=== PATIENT | female | born 1935 | race Two or more races ===

== ENCOUNTER 2021-01-15 15:11 | Inpatient (IN) | payer OTHER ==
[2021-01-15] VITALS (31 sets, daily range): BP systolic 82–142; BP diastolic 22–65
[~2021-01-15] VITALS: Ht 170.2 cm; Wt 90.4 kg
[2021-01-15] MEDS ORDERED: NOREPINEPHRINE 8 MG/250ML KIT 250 ML IV ONE (15:18)
[2021-01-15] MEDS ORDERED: NOREPINEPHRINE 8 MG/250ML KIT 250 ML IV SCH (15:30)
[2021-01-15] MEDS ORDERED: IODIXANOL 320MG/ML 100ML BTL IV ONE (15:37)
[2021-01-15] MEDS ORDERED: LIDOCAINE 2%HCL (LOCAL ANESTH.) INJ 20ML MDV ONE (15:37)
[2021-01-15 15:57] LABS: Basophils # (auto) 0.1 10 ^3/uL (0-0.2); Basophils % (auto) 0.4 % (0.0-2.0); Eosinophils # (auto) 0.2 10 ^3/uL (0-0.8); Eosinophils % (auto) 1.4 % (0.0-7.0); Hematocrit 32.8 % (36.0-46.0); Hemoglobin 10.4 g/dL (12.2-16.2); Lymphocytes # (auto) 6.4 10 ^3/uL (0.4-5.4); Lymphocytes % (auto) 45.9 % (10.0-50.0); Mean Corpuscular Hemoglobin 28.1 pg (28.0-32.0); Mean Corpuscular Hgb Conc. 31.7 g/dL (32.0-36.0); Mean Corpuscular Volume 88.4 fL (80.0-100.0); Monocytes # (auto) 0.5 10 ^3/uL (0-1.3); Monocytes % (auto) 3.8 % (0.0-12.0); Neutrophils # (auto) 6.8 10 ^3/uL (1.6-8.6); Neutrophils % (auto) 48.5 % (37.0-80.0); Nucleated Red Blood Cells % 0.1 %; Red Blood Cells 3.71 10^6/uL (4.0-5.20); Red Cell Distribution Width 15.1 % (11.8-14.3)
[2021-01-15] MEDS ORDERED: HEPARIN SODIUM (PORCINE) 5000 UNITS/ML 1ML VIAL ONE (16:02)
[2021-01-15] MEDS ORDERED: VERAPAMIL 2.5MG/ML INJ 2ML VIAL IV ONE (16:03)
[2021-01-15] MEDS ORDERED: ATROPINE SULF 1 MG/10ml SYR ONE (16:17)
[2021-01-15] MEDS ORDERED: EPINEPHrine HCL 1 MG/10 ML SYRG ONE (16:17)
[2021-01-15 16:26] LABS: Albumin 2.5 g/dL (3.4-5.0); Calcium 7.9 mg/dL (8.5-10.1); Magnesium 2.5 mg/dL (1.6-2.6); Potassium 4.9 mmol/L (3.5-5.1)
[2021-01-15] MEDS ORDERED: MIDAZOLAM HCL 2MG/2ML 2ml VIAL (1mg/ml) ONE (16:27)
[2021-01-15 16:32] LABS: BUN/Creatinine Ratio 19.9; Bilirubin, Total 0.3 mg/dL (0.2-1.0); Total Protein 6.6 g/dL (6.4-8.2)
[2021-01-15] MEDS ORDERED: IPRATROPIUM BROM 0.5 MG/2.5ML INH SOL NEB PRN (17:00)
[2021-01-15] MEDS ORDERED: DEXTROSE (50%) 50ML SYRG IV PRN (17:00)
[2021-01-15] MEDS ORDERED: SODIUM CHLORIDE 0.9% 1,000 ML IV SCH (17:00)
[2021-01-15] MEDS ORDERED: ALBUTEROL SULF 2.5 MG/0.5ML(0.5%) NEB SOLN NEB PRN (17:00)
[2021-01-15] MEDS ORDERED: NITROGLYCERIN 0.4 MG SL TAB SL PRN (17:00)
[2021-01-15] MEDS ORDERED: MORPHINE SULFATE INJECTION 2 MG/2 ML SYRG IV PRN (17:00)
[2021-01-15] MEDS ORDERED: FUROSEMIDE 20 MG/2 ML VIAL IV ONE (17:00)
[2021-01-15] MEDS ORDERED: MIDAZOLAM DRIP 50 mg/50mL 50 ML IV ONE (17:02)
[2021-01-15] MEDS ORDERED: BUMETANIDE 2.5mg/10ml (0.25 mg/ml) INJ IV ONE (17:15)
[2021-01-15] MEDS: cefTRIAXone 1GM/50ML D5W 50 ML IV SCH (17:47)
[2021-01-15 17:52] LABS: INR 1.13 (0.9-1.15); Partial Thromboplastin Time 28.8 sec (23.0-31.2)
[2021-01-15] MEDS: InsuLIN REG 1unit/0.01ml Soln (100units/ml) SC SCH (17:58)
[2021-01-15] MEDS: ACCU-CHEK COMFORT CURVE STRIP VI SCH (18:00)
[2021-01-15] MEDS: MIDAZOLAM DRIP 50 mg/50mL 50 ML IV SCH ×2 (19:15→22:28)
[2021-01-15] MEDS: NOREPINEPHRINE 8 MG/250ML KIT 250 ML IV SCH (19:17)
[2021-01-15] MEDS ORDERED: SODIUM BICARBONATE 8.4 % INJ 50ML VIAL IV ONE (19:45)
[2021-01-15] MEDS: AZITHROMYCIN 500MG/ 250ML 250 ML IV SCH (20:51)
[2021-01-16] VITALS (99 sets, daily range): BP systolic 78–167; BP diastolic 27–80
[2021-01-16] MEDS: ACCU-CHEK COMFORT CURVE STRIP VI SCH ×4 (00:22→18:04)
[2021-01-16] MEDS: MIDAZOLAM DRIP 50 mg/50mL 50 ML IV SCH ×3 (02:00→23:00)
[2021-01-16 04:39] LABS: Basophils # (auto) 0 10 ^3/uL (0-0.2); Basophils % (auto) 0.1 % (0.0-2.0); Eosinophils # (auto) 0 10 ^3/uL (0-0.8); Hematocrit 30.7 % (36.0-46.0); Hemoglobin 10.1 g/dL (12.2-16.2); Lymphocytes # (auto) 0.8 10 ^3/uL (0.4-5.4); Lymphocytes % (auto) 4.8 % (10.0-50.0); Mean Corpuscular Hemoglobin 28.4 pg (28.0-32.0); Mean Corpuscular Hgb Conc. 32.8 g/dL (32.0-36.0); Mean Corpuscular Volume 86.6 fL (80.0-100.0); Monocytes # (auto) 0.9 10 ^3/uL (0-1.3); Monocytes % (auto) 5.6 % (0.0-12.0); Neutrophils # (auto) 14.7 10 ^3/uL (1.6-8.6); Neutrophils % (auto) 89.5 % (37.0-80.0); Red Blood Cells 3.54 10^6/uL (4.0-5.20); Red Cell Distribution Width 14.9 % (11.8-14.3); White Blood Cell 16.5 10^3/uL (4.4-10.8)
[2021-01-16 04:56] LABS: Potassium 5.2 mmol/L (3.5-5.1)
[2021-01-16 05:05] LABS: Albumin 2.3 g/dL (3.4-5.0); BUN/Creatinine Ratio 16.4; Bilirubin, Total 0.5 mg/dL (0.2-1.0); Calcium 7.9 mg/dL (8.5-10.1); Total Protein 6.3 g/dL (6.4-8.2)
[2021-01-16 05:09] LABS: INR 1.16 (0.9-1.15); Partial Thromboplastin Time 27.1 sec (23.0-31.2)
[2021-01-16] MEDS: InsuLIN REG 1unit/0.01ml Soln (100units/ml) SC SCH ×4 (06:08→18:27)
[2021-01-16] MEDS: cefTRIAXone 1GM/50ML D5W 50 ML IV SCH (09:45)
[2021-01-16] MEDS ORDERED: SODIUM BICARBONATE 8.4 % INJ 50ML VIAL IV ONE (09:45)
[2021-01-16] MEDS: PANTOPRAZOLE 40 MG/10 ML VIAL INJ IV SCH (10:05)
[2021-01-16] MEDS: AZITHROMYCIN 500MG/ 250ML 250 ML IV SCH (10:06)
[2021-01-16] MEDS ORDERED: ATROPINE SULF 1 MG/10ml SYR IV ONE (13:47)
[2021-01-16] MEDS ORDERED: EPINEPHrine HCL 1 MG/10 ML SYRG IV ONE (13:47)
[2021-01-16] MEDS ORDERED: MAGNESIUM SULF 50% 40 MEQ/10 ML VL IV ONE (13:47)
[2021-01-16] MEDS ORDERED: SODIUM BICARBONATE 8.4% INJ 50ML SYRINGE IV ONE (13:47)
[2021-01-16] MEDS ORDERED: DOPamine 1600MCG/ML D5W 250 ML IV SCH (14:30)
[2021-01-16] MEDS ORDERED: D5W/SOD CHL 0.45% 1,000 ML IV SCH (14:30)
[2021-01-16] MEDS ORDERED: DOPamine 1600MCG/ML D5W 250 ML IV ONE (14:35)
[2021-01-16] MEDS: SODIUM BICARBONATE 50ML VIAL 50 ML in D5W/SOD CHL 0.45% 1,000 ML IV SCH (16:36)
[2021-01-16] MEDS: DOPamine 1600MCG/ML D5W 250 ML IV SCH (16:37)
[2021-01-16] MEDS: NOREPINEPHRINE 8 MG/250ML KIT 250 ML IV SCH (17:00)
[2021-01-16] MEDS: HEPARIN SODIUM (PORCINE) 5000 UNITS/ML 1ML VIAL SC SCH (21:39)
[2021-01-16] MEDS: MEROPENEM 500MG IVPB 50 ML IV SCH (21:39)
[2021-01-17] VITALS (92 sets, daily range): BP systolic 91–167; BP diastolic 37–87
[2021-01-17] MEDS: ACCU-CHEK COMFORT CURVE STRIP VI SCH ×5 (00:14→23:55)
[2021-01-17] MEDS: InsuLIN REG 1unit/0.01ml Soln (100units/ml) SC SCH ×5 (00:15→23:55)
[2021-01-17] MEDS: SODIUM BICARBONATE 50ML VIAL 50 ML in D5W/SOD CHL 0.45% 1,000 ML IV SCH ×2 (00:40→10:15)
[2021-01-17 04:50] LABS: Calcium 7.6 mg/dL (8.5-10.1); Potassium 5.2 mmol/L (3.5-5.1); Uric Acid 9.8 mg/dL (2.6-6.0)
[2021-01-17 04:53] LABS: BUN/Creatinine Ratio 14.1; Bilirubin, Total 0.4 mg/dL (0.2-1.0); Phosphorus 4.6 mg/dL (2.5-4.90); Total Protein 5.9 g/dL (6.4-8.2)
[2021-01-17] MEDS: MIDAZOLAM DRIP 50 mg/50mL 50 ML IV SCH ×5 (06:00→22:48)
[2021-01-17 06:06] LABS: Urine Bacteria NONE SEEN /hpf (None Seen); Urine Blood 3+ /uL (Negative); Urine WBC 272 /hpf (0 - 5); Urine WBC Clumps PRESENT /hpf (None Seen)
[2021-01-17] MEDS: HEPARIN SODIUM (PORCINE) 5000 UNITS/ML 1ML VIAL SC SCH ×3 (06:07→21:48)
[2021-01-17 06:19] LABS: Amphetamine Screen, Urine NEGATIVE (NEGATIVE); Barbiturate Scree,Urine NEGATIVE (NEGATIVE); Benzodiazephine Screen, Urine POSITIVE (NEGATIVE); Cannabinoid Screen, Urine NEGATIVE (NEGATIVE); Cocaine Screen, Urine NEGATIVE (NEGATIVE); Opiate Scree,Urine NEGATIVE (NEGATIVE); Phencyclidine Screen, Urine NEGATIVE (NEGATIVE)
[2021-01-17 07:47] LABS: Basophils # (auto) 0 10 ^3/uL (0-0.2); Basophils % (auto) 0.1 % (0.0-2.0); Eosinophils # (auto) 0 10 ^3/uL (0-0.8); Hemoglobin 8.8 g/dL (12.2-16.2); Lymphocytes # (auto) 0.8 10 ^3/uL (0.4-5.4); Lymphocytes % (auto) 6.6 % (10.0-50.0); Mean Corpuscular Hemoglobin 28.9 pg (28.0-32.0); Mean Corpuscular Hgb Conc. 33.7 g/dL (32.0-36.0); Mean Corpuscular Volume 85.7 fL (80.0-100.0); Monocytes # (auto) 0.6 10 ^3/uL (0-1.3); Monocytes % (auto) 4.6 % (0.0-12.0); Neutrophils # (auto) 11.5 10 ^3/uL (1.6-8.6); Neutrophils % (auto) 88.7 % (37.0-80.0); Red Blood Cells 3.03 10^6/uL (4.0-5.20); Red Cell Distribution Width 15.5 % (11.8-14.3)
[2021-01-17 08:57] LABS: Creatinine, Urine 34.9 mg/dL (30.0-125.0); Protein, Urine 773.9 mg/dL (0.0-11.9)
[2021-01-17] MEDS: MEROPENEM 500MG IVPB 50 ML IV SCH ×2 (10:30→21:47)
[2021-01-17] MEDS: PANTOPRAZOLE 40 MG/10 ML VIAL INJ IV SCH (10:30)
[2021-01-17] MEDS ORDERED: acetaZOLAMIDE SODIUM 500 MG VL IV ONE (10:45)
[2021-01-17] MEDS: SOD CHL 0.45% 1,000 ML IV SCH ×2 (11:26→21:47)
[2021-01-17] MEDS: BUMETANIDE INJECTION 12.5 MG in GIVE UN-DILUTED 0 ML IV SCH ×2 (12:02→22:00)
[2021-01-17] MEDS: AZITHROMYCIN 500MG/ 250ML 250 ML IV SCH (13:33)
[2021-01-17] MEDS: NOREPINEPHRINE 8 MG/250ML KIT 250 ML IV SCH (19:08)
[2021-01-17] MEDS: DOPamine 1600MCG/ML D5W 250 ML IV SCH (21:46)
[2021-01-18] VITALS (98 sets, daily range): BP systolic 92–147; BP diastolic 36–64
[2021-01-18] MEDS: MIDAZOLAM DRIP 50 mg/50mL 50 ML IV SCH ×4 (02:00→23:26)
[2021-01-18 04:28] LABS: Calcium 7.2 mg/dL (8.5-10.1); Potassium 5.1 mmol/L (3.5-5.1)
[2021-01-18 04:31] LABS: Bilirubin, Total 0.4 mg/dL (0.2-1.0); Total Protein 5.8 g/dL (6.4-8.2)
[2021-01-18] MEDS: InsuLIN REG 1unit/0.01ml Soln (100units/ml) SC SCH ×4 (06:00→23:48)
[2021-01-18] MEDS: ACCU-CHEK COMFORT CURVE STRIP VI SCH ×4 (06:08→23:48)
[2021-01-18] MEDS: HEPARIN SODIUM (PORCINE) 5000 UNITS/ML 1ML VIAL SC SCH ×3 (06:09→21:58)
[2021-01-18] MEDS: SOD CHL 0.45% 1,000 ML IV SCH (06:23)
[2021-01-18 07:46] LABS: Basophils # (auto) 0 10 ^3/uL (0-0.2); Basophils % (auto) 0.3 % (0.0-2.0); Eosinophils # (auto) 0 10 ^3/uL (0-0.8); Eosinophils % (auto) 0.2 % (0.0-7.0); Hematocrit 25.8 % (36.0-46.0); Hemoglobin 8.5 g/dL (12.2-16.2); Lymphocytes # (auto) 0.9 10 ^3/uL (0.4-5.4); Lymphocytes % (auto) 7.2 % (10.0-50.0); Mean Corpuscular Hemoglobin 28.9 pg (28.0-32.0); Mean Corpuscular Hgb Conc. 33.2 g/dL (32.0-36.0); Mean Corpuscular Volume 87.1 fL (80.0-100.0); Monocytes # (auto) 0.6 10 ^3/uL (0-1.3); Neutrophils # (auto) 10.3 10 ^3/uL (1.6-8.6); Neutrophils % (auto) 87.3 % (37.0-80.0); Nucleated Red Blood Cells % 0.1 %; Red Blood Cells 2.96 10^6/uL (4.0-5.20); Red Cell Distribution Width 15.2 % (11.8-14.3); White Blood Cell 11.8 10^3/uL (4.4-10.8)
[2021-01-18] MEDS: PANTOPRAZOLE 40 MG/10 ML VIAL INJ IV SCH (10:29)
[2021-01-18] MEDS: MEROPENEM 500MG IVPB 50 ML IV SCH ×2 (10:30→21:57)
[2021-01-18] MEDS: BUMETANIDE INJECTION 25 MG in GIVE UN-DILUTED 0 ML IV SCH (12:36)
[2021-01-18] MEDS: AZITHROMYCIN 500MG/ 250ML 250 ML IV SCH (12:37)
[2021-01-18] MEDS: ALBUMIN 25% 100 ML IV SCH ×2 (15:56→20:53)
[2021-01-18] MEDS: DOPamine 1600MCG/ML D5W 250 ML IV SCH (16:15)
[2021-01-18] MEDS: NOREPINEPHRINE 8 MG/250ML KIT 250 ML IV SCH (17:38)
[2021-01-19] VITALS (95 sets, daily range): BP systolic 82–153; BP diastolic 31–64
[2021-01-19] MEDS: ALBUMIN 25% 100 ML IV SCH (03:18)
[2021-01-19] MEDS: MIDAZOLAM DRIP 50 mg/50mL 50 ML IV SCH ×3 (03:19→17:36)
[2021-01-19 04:49] LABS: Potassium 4.7 mmol/L (3.5-5.1)
[2021-01-19 04:58] LABS: Albumin 2.3 g/dL (3.4-5.0); BUN/Creatinine Ratio 12.1; Bilirubin, Total 0.4 mg/dL (0.2-1.0); Calcium 6.7 mg/dL (8.5-10.1); Total Protein 5.7 g/dL (6.4-8.2)
[2021-01-19] MEDS: ACCU-CHEK COMFORT CURVE STRIP VI SCH ×3 (06:00→17:35)
[2021-01-19] MEDS: InsuLIN REG 1unit/0.01ml Soln (100units/ml) SC SCH ×3 (06:00→17:35)
[2021-01-19] MEDS: HEPARIN SODIUM (PORCINE) 5000 UNITS/ML 1ML VIAL SC SCH ×3 (06:44→22:00)
[2021-01-19] MEDS: BUMETANIDE INJECTION 25 MG in GIVE UN-DILUTED 0 ML IV SCH (07:10)
[2021-01-19] MEDS: DOPamine 1600MCG/ML D5W 250 ML IV SCH (07:57)
[2021-01-19 08:06] LABS: Immunoglobulin G, Serum 898 mg/dL (586-1602)
[2021-01-19] MEDS: PANTOPRAZOLE 40 MG/10 ML VIAL INJ IV SCH (09:54)
[2021-01-19] MEDS: MEROPENEM 500MG IVPB 50 ML IV SCH (10:06)
[2021-01-19] MEDS: AZITHROMYCIN 500MG/ 250ML 250 ML IV SCH ×2 (12:48→13:04)
[2021-01-19] MEDS: NOREPINEPHRINE 8 MG/250ML KIT 250 ML IV SCH (17:00)
[2021-01-20] VITALS (101 sets, daily range): BP systolic 96–161; BP diastolic 33–65
[2021-01-20] MEDS: ACCU-CHEK COMFORT CURVE STRIP VI SCH ×5 (00:27→23:52)
[2021-01-20] MEDS: InsuLIN REG 1unit/0.01ml Soln (100units/ml) SC SCH ×5 (05:41→23:52)
[2021-01-20] MEDS: HEPARIN SODIUM (PORCINE) 5000 UNITS/ML 1ML VIAL SC SCH ×3 (06:32→22:53)
[2021-01-20] MEDS: PANTOPRAZOLE 40 MG/10 ML VIAL INJ IV SCH (09:59)
[2021-01-20] MEDS: MEROPENEM 500MG IVPB 50 ML IV SCH (10:00)
[2021-01-20] MEDS: BUMETANIDE INJECTION 25 MG in GIVE UN-DILUTED 0 ML IV SCH (10:00)
[2021-01-20 10:54] LABS: Basophils # (auto) 0 10 ^3/uL (0-0.2); Eosinophils # (auto) 0.2 10 ^3/uL (0-0.8); Lymphocytes # (auto) 0.8 10 ^3/uL (0.4-5.4); Mean Corpuscular Volume 84.9 fL (80.0-100.0); Monocytes # (auto) 0.6 10 ^3/uL (0-1.3); Monocytes % (auto) 8.5 % (0.0-12.0); Neutrophils # (auto) 5.1 10 ^3/uL (1.6-8.6); Nucleated Red Blood Cells % 0.1 %
[2021-01-20 10:57] LABS: Basophils % (auto) 0.3 % (0.0-2.0); Eosinophils % (auto) 2.5 % (0.0-7.0); Hematocrit 22.6 % (36.0-46.0); Hemoglobin 7.8 g/dL (12.2-16.2); Lymphocytes % (auto) 11.7 % (10.0-50.0); Mean Corpuscular Hemoglobin 29.4 pg (28.0-32.0); Mean Corpuscular Hgb Conc. 34.7 g/dL (32.0-36.0); Red Blood Cells 2.66 10^6/uL (4.0-5.20); White Blood Cell 6.6 10^3/uL (4.4-10.8)
[2021-01-20 11:11] LABS: Albumin 2.2 g/dL (3.4-5.0); Calcium 7.2 mg/dL (8.5-10.1); Potassium 4.4 mmol/L (3.5-5.1)
[2021-01-20 11:15] LABS: BUN/Creatinine Ratio 11.6; Bilirubin, Total 0.4 mg/dL (0.2-1.0); Total Protein 5.8 g/dL (6.4-8.2)
[2021-01-20] MEDS: DOPamine 1600MCG/ML D5W 250 ML IV SCH (14:26)
[2021-01-20] MEDS: NOREPINEPHRINE 8 MG/250ML KIT 250 ML IV SCH (17:00)
[2021-01-21] VITALS (94 sets, daily range): BP systolic 101–177; BP diastolic 31–72
[2021-01-21] MEDS: BUMETANIDE INJECTION 25 MG in GIVE UN-DILUTED 0 ML IV SCH (05:15)
[2021-01-21] MEDS: ACCU-CHEK COMFORT CURVE STRIP VI SCH ×3 (05:45→17:42)
[2021-01-21] MEDS: InsuLIN REG 1unit/0.01ml Soln (100units/ml) SC SCH ×3 (05:45→18:00)
[2021-01-21] MEDS: HEPARIN SODIUM (PORCINE) 5000 UNITS/ML 1ML VIAL SC SCH ×3 (05:47→21:39)
[2021-01-21] MEDS: MEROPENEM 500MG IVPB 50 ML IV SCH (10:13)
[2021-01-21] MEDS: PANTOPRAZOLE 40 MG/10 ML VIAL INJ IV SCH (10:51)
[2021-01-21] MEDS: AZITHROMYCIN 500MG/ 250ML 250 ML IV SCH (12:00)
[2021-01-21] MEDS: NOREPINEPHRINE 8 MG/250ML KIT 250 ML IV SCH (14:39)
[2021-01-21] MEDS: MIDAZOLAM DRIP 50 mg/50mL 50 ML IV SCH (14:39)
[2021-01-21] MEDS: DOPamine 1600MCG/ML D5W 250 ML IV SCH (16:15)
[2021-01-22] VITALS (102 sets, daily range): BP systolic 107–159; BP diastolic 41–70
[2021-01-22] MEDS: ACCU-CHEK COMFORT CURVE STRIP VI SCH ×4 (00:09→17:05)
[2021-01-22] MEDS: DOPamine 1600MCG/ML D5W 250 ML IV SCH (03:13)
[2021-01-22 04:52] LABS: Basophils # (auto) 0 10 ^3/uL (0-0.2); Hemoglobin 8.3 g/dL (12.2-16.2); Lymphocytes # (auto) 0.9 10 ^3/uL (0.4-5.4); Monocytes # (auto) 0.6 10 ^3/uL (0-1.3)
[2021-01-22 04:54] LABS: Basophils % (auto) 0.5 % (0.0-2.0); Eosinophils # (auto) 0.2 10 ^3/uL (0-0.8); Eosinophils % (auto) 2.3 % (0.0-7.0); Hematocrit 24.8 % (36.0-46.0); Lymphocytes % (auto) 12.6 % (10.0-50.0); Mean Corpuscular Hemoglobin 28.3 pg (28.0-32.0); Mean Corpuscular Hgb Conc. 33.4 g/dL (32.0-36.0); Mean Corpuscular Volume 84.7 fL (80.0-100.0); Monocytes % (auto) 8.9 % (0.0-12.0); Neutrophils # (auto) 5.2 10 ^3/uL (1.6-8.6); Neutrophils % (auto) 75.7 % (37.0-80.0); Red Blood Cells 2.92 10^6/uL (4.0-5.20); Red Cell Distribution Width 14.5 % (11.8-14.3); White Blood Cell 6.9 10^3/uL (4.4-10.8)
[2021-01-22 05:12] LABS: BUN/Creatinine Ratio 12.3; Calcium 7.7 mg/dL (8.5-10.1); Potassium 4.3 mmol/L (3.5-5.1)
[2021-01-22] MEDS: InsuLIN REG 1unit/0.01ml Soln (100units/ml) SC SCH ×4 (06:00→17:05)
[2021-01-22] MEDS: HEPARIN SODIUM (PORCINE) 5000 UNITS/ML 1ML VIAL SC SCH ×3 (06:27→21:09)
[2021-01-22] MEDS ORDERED: SODIUM CHLORIDE 0.9% 500 ML IV ONE (07:30)
[2021-01-22] MEDS: BUMETANIDE INJECTION 25 MG in GIVE UN-DILUTED 0 ML IV SCH (07:32)
[2021-01-22] MEDS: PANTOPRAZOLE 40 MG/10 ML VIAL INJ IV SCH (09:06)
[2021-01-22] MEDS: FUROSEMIDE 100 MG/10ML VIAL IV SCH (09:06)
[2021-01-22] MEDS: MEROPENEM 500MG IVPB 50 ML IV SCH (09:25)
[2021-01-22] MEDS: AZITHROMYCIN 500MG/ 250ML 250 ML IV SCH (12:00)
[2021-01-22] MEDS: MIDAZOLAM DRIP 50 mg/50mL 50 ML IV SCH (13:04)
[2021-01-22] MEDS: NOREPINEPHRINE 8 MG/250ML KIT 250 ML IV SCH (14:42)
[2021-01-23] VITALS (100 sets, daily range): BP systolic 92–180; BP diastolic 36–83
[2021-01-23 04:34] LABS: BUN/Creatinine Ratio 12.6; Potassium 4.2 mmol/L (3.5-5.1)
[2021-01-23] MEDS: InsuLIN REG 1unit/0.01ml Soln (100units/ml) SC SCH ×4 (06:00→18:00)
[2021-01-23] MEDS: HEPARIN SODIUM (PORCINE) 5000 UNITS/ML 1ML VIAL SC SCH ×3 (06:20→21:58)
[2021-01-23] MEDS: ACCU-CHEK COMFORT CURVE STRIP VI SCH ×4 (06:20→17:53)
[2021-01-23] MEDS: PANTOPRAZOLE 40 MG/10 ML VIAL INJ IV SCH (09:41)
[2021-01-23] MEDS: MEROPENEM 500MG IVPB 50 ML IV SCH (09:42)
[2021-01-23] MEDS: FUROSEMIDE 100 MG/10ML VIAL IV SCH (09:42)
[2021-01-23] MEDS: DOPamine 1600MCG/ML D5W 250 ML IV SCH (09:43)
[2021-01-23] MEDS: AZITHROMYCIN 500MG/ 250ML 250 ML IV SCH (12:00)
[2021-01-23] MEDS: MIDAZOLAM DRIP 50 mg/50mL 50 ML IV SCH (17:00)
[2021-01-23] MEDS: NOREPINEPHRINE 8 MG/250ML KIT 250 ML IV SCH (17:00)
[2021-01-24] VITALS (92 sets, daily range): BP systolic 86–153; BP diastolic 31–64
[2021-01-24] MEDS: ACCU-CHEK COMFORT CURVE STRIP VI SCH ×4 (00:10→18:10)
[2021-01-24] MEDS: InsuLIN REG 1unit/0.01ml Soln (100units/ml) SC SCH ×4 (06:00→18:00)
[2021-01-24] MEDS: HEPARIN SODIUM (PORCINE) 5000 UNITS/ML 1ML VIAL SC SCH ×3 (06:40→22:25)
[2021-01-24 08:09] LABS: BUN/Creatinine Ratio 13.1
[2021-01-24] MEDS: PANTOPRAZOLE 40 MG/10 ML VIAL INJ IV SCH (09:56)
[2021-01-24] MEDS: FUROSEMIDE 100 MG/10ML VIAL IV SCH (09:57)
[2021-01-24] MEDS: MEROPENEM 500MG IVPB 50 ML IV SCH (09:58)
[2021-01-24] MEDS: AZITHROMYCIN 500MG/ 250ML 250 ML IV SCH (11:51)
[2021-01-24] MEDS: MIDAZOLAM DRIP 50 mg/50mL 50 ML IV SCH (17:00)
[2021-01-24] MEDS: NOREPINEPHRINE 8 MG/250ML KIT 250 ML IV SCH (17:00)
[2021-01-25] VITALS (47 sets, daily range): BP systolic 92–143; BP diastolic 31–68
[2021-01-25] MEDS: InsuLIN REG 1unit/0.01ml Soln (100units/ml) SC SCH
[2021-01-25] MEDS: ACCU-CHEK COMFORT CURVE STRIP VI SCH (00:06)
[2021-01-25] MEDS ORDERED: ONDANSETRON HCL 4 MG/2 ML VIAL IV PRN (08:15)
[2021-01-25] MEDS ORDERED: HYOSCYAMINE SULF 0.125 MG ODT TAB PO PRN (08:15)
[2021-01-25] MEDS: LORazepam 2MG/ML-1ML VIAL IV PRN (11:27)
[2021-01-25] MEDS: MORPHINE SULFATE INJECTION 2 MG/2 ML SYRG IV PRN (11:27)
[2021-01-26 05:43] VITALS: BP 126/44
[2021-01-26 08:55] VITALS: BP 117/40
[2021-01-26 13:00] VITALS: BP 104/37
[2021-01-26 16:36] VITALS: BP 114/39
[2021-01-27 08:46] VITALS: BP 107/55
[2021-01-28 05:00] VITALS: BP 126/49
[2021-01-28 16:38] VITALS: BP 114/38
[2021-01-28 22:00] VITALS: BP 124/83
[2021-01-29] MEDS: LORazepam 2MG/ML-1ML VIAL IV PRN ×3 (18:31→21:53)
[2021-01-29] MEDS: MORPHINE SULFATE INJECTION 2 MG/2 ML SYRG IV PRN ×2 (18:31→21:52)
[2021-01-30] MEDS: MORPHINE SULFATE INJECTION 2 MG/2 ML SYRG IV PRN ×4 (00:31→09:06)
[2021-01-30] MEDS: LORazepam 2MG/ML-1ML VIAL IV PRN ×4 (00:32→09:06)
== END 2021-01-30 18:00 ==
LOC: EDBD 15:11 → ER 15:11 → ICU WEST 16:57 → CENTRAL 01-25 18:00
PROVIDERS: ADMIT Nurse Practitioner Acute Care; ATTEND Internal Medicine
PROC: 5A1955Z Respiratory Ventilation, Greater than 96 Consecutive Hours (ICD-10-PCS; principal; 2021-01-15)
PROC: 0BH17EZ Insertion of Endotracheal Airway into Trachea, Via Natural or Artificial Opening (ICD-10-PCS; 2021-01-15)
PROC: 4A023N7 Measurement of Cardiac Sampling and Pressure, Left Heart, Percutaneous Approach (ICD-10-PCS; 2021-01-15)
PROC: B211YZZ Fluoroscopy of Multiple Coronary Arteries using Other Contrast (ICD-10-PCS; 2021-01-15)
PROC: B215YZZ Fluoroscopy of Left Heart using Other Contrast (ICD-10-PCS; 2021-01-15)
PROC: 5A1223Z Performance of Cardiac Pacing, Continuous (ICD-10-PCS; 2021-01-15)
PROC: 05HD33Z Insertion of Infusion Device into Right Cephalic Vein, Percutaneous Approach (ICD-10-PCS; 2021-01-18)
PROC: B54MZZA Ultrasonography of Right Upper Extremity Veins, Guidance (ICD-10-PCS; 2021-01-18)
DX: I44.2 Atrioventricular block, complete (principal); G93.6 Cerebral edema; I21.3 ST elevation (STEMI) myocardial infarction of unspecified site; I50.21 Acute systolic (congestive) heart failure; K72.00 Acute and subacute hepatic failure without coma; J96.01 Acute respiratory failure with hypoxia; N17.0 Acute kidney failure with tubular necrosis; J96.02 Acute respiratory failure with hypercapnia; G93.41 Metabolic encephalopathy; N13.6 Pyonephrosis; G93.1 Anoxic brain damage, not elsewhere classified; I13.0 Hypertensive heart and chronic kidney disease with heart failure and stage 1 through stage 4 chronic kidney disease, or unspecified chronic kidney disease; Z99.11 Dependence on respirator [ventilator] status; E87.2 Acidosis; Z66 Do not resuscitate; I46.9 Cardiac arrest, cause unspecified; Z51.5 Encounter for palliative care; E87.5 Hyperkalemia; Z20.822 Contact with and (suspected) exposure to COVID-19; E88.09 Other disorders of plasma-protein metabolism, not elsewhere classified; N18.9 Chronic kidney disease, unspecified; D64.9 Anemia, unspecified; B96.20 Unspecified Escherichia coli [E. coli] as the cause of diseases classified elsewhere; E11.22 Type 2 diabetes mellitus with diabetic chronic kidney disease; E66.9 Obesity, unspecified; E78.5 Hyperlipidemia, unspecified; F17.200 Nicotine dependence, unspecified, uncomplicated; R79.89 Other specified abnormal findings of blood chemistry; N81.3 Complete uterovaginal prolapse; Z68.31 Body mass index [BMI] 31.0-31.9, adult
CPT/HCPCS: 31500; 36415; 36600; 70450; 71045; 74018; 74176; 76775; 80048; 80053; 80307; 81001; 82570; 82784; 82805; 82962; 83036; 83735; 84100; 84156; 84300; 84484; 84550; 85025; 85379; 85610; 85730; 86334; 87040; 87070; 87081; 87086; 87088; 87186; 87205; 93005; 93306; 93458; 94002; 94003; 95819; 96365; 96375; 99152; 99291; A4618; C1751; C9113; G0378; J0696; J2185; J2250; P9047; Q9967